=== PATIENT | female | born 1970 | race Caucasian/White ===

== ENCOUNTER 2016-11-18 18:06 | Emergency (ER) | payer MEDICARE, MEDICAID ==
[2016-11-18 18:30] VITALS: BP 117/77
[2016-11-18] MEDS ORDERED: HYDROcodone/ACETAMIN 5-325 MG* 1 TAB PO ONE ×2 (18:50→20:00)
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
--- NOTE | 2016-11-18 19:17 | RAD ---
HISTORY: Wrist pain, fall COMPARISONS: None VIEWS: 3, Frontal, lateral, and oblique views of the left wrist FINDINGS: BONE DENSITY: Normal. BONES: There is a comminuted angulated fracture of the distal radial metaphysis with articular extension. There is approximately 30 degrees of volar angulation. JOINTS: There is no arthropathy. ALIGNMENT: There is no dislocation. SOFT TISSUES: Unremarkable. OTHER FINDINGS: None. IMPRESSION: COMMINUTED ANGULATED FRACTURE OF THE DISTAL RADIAL METAPHYSIS WITH ARTICULAR EXTENSION
== END 2016-11-18 20:28 | disposition home or self-care (01) ==
LOC: UCCORT 18:06
DX: S52.502A Unspecified fracture of the lower end of left radius, initial encounter for closed fracture (principal); S00.81XA Abrasion of other part of head, initial encounter; S60.312A Abrasion of left thumb, initial encounter; V86.99XA Unspecified occupant of other special all-terrain or other off-road motor vehicle injured in nontraffic accident, initial encounter; Y93.9 Activity, unspecified; Y92.9 Unspecified place or not applicable; Z88.5 Allergy status to narcotic agent; F17.210 Nicotine dependence, cigarettes, uncomplicated
CPT/HCPCS: 99213; G0463

== ENCOUNTER 2016-12-01 10:21 | Day surgery (SDC) | payer MEDICARE, MEDICAID ==
[~2016-12-01 10:21] MED LIST: Buffered Lidocaine 0.9% SYRIN* 5 ML/SYR SYRINGE INTRADERM ONE; Famotidine IV* 10 MG/ML 2 ML (20 mg) IV ONE
[2016-12-01] MEDS ORDERED: Dexamethasone IV* 4 MG/ML 1 ML (4 MG) ONE (10:50)
[2016-12-01] MEDS ORDERED: Famotidine IV* 10 MG/ML 2 ML (20 mg) ONE (10:50)
[2016-12-01] MEDS ORDERED: ceFAZolin 2 GM PREMIX (*) 50 ML IVPB ONE (11:18)
[2016-12-01] MEDS ORDERED: Lidocaine 2% PF * 5 ML VIAL ONE (11:34)
[2016-12-01] MEDS ORDERED: Propofol* 10 MG/ML 20 ML BTL IV PUSH ONE (11:34)
[2016-12-01] MEDS ORDERED: fentaNYL* 50 MCG/ML 5 ML VIAL (250 MCG VIAL) ONE ×2 (11:49→12:51)
[2016-12-01] MEDS ORDERED: KETAMINE HCL* 50 MG/ML 10 ML VIAL ONE (11:49)
[2016-12-01] MEDS ORDERED: Midazolam* 1 MG/ML 2 ML VIAL (2 MG) ONE (11:49)
[2016-12-01] MEDS ORDERED: Bupivacaine 0.25% SDV* 30 ML ONE (11:49)
[2016-12-01] MEDS ORDERED: Ketorolac INJ* 30 MG/ML 1 ML VIAL ONE (12:04)
[2016-12-01] MEDS ORDERED: oxyCODONE TAB* 5 MG TAB PO PRN (12:24)
[2016-12-01] MEDS ORDERED: Morphine INJ* 2 MG/ML 1 ML CARPUJECT IV PRN (12:24)
[2016-12-01] MEDS ORDERED: PROCHLORPERAZINE INJ 5 MG/ML 2 ML VIAL IV PRN (12:24)
[2016-12-01] MEDS ORDERED: Ondansetron INJ* 2 MG/ML VIAL ONE (13:15)
[2016-12-01] MEDS ORDERED: fentaNYL* 50 MCG/ML 2 ML VIAL (100 MCG VIAL) ONE ×2 (14:14→14:36)
[2016-12-01] MEDS: fentaNYL* 50 MCG/ML 2 ML VIAL (100 MCG VIAL) IV PRN ×3 (14:15→14:37)
[2016-12-01 15:27] VITALS: BP 123/78
--- NOTE | 2016-12-02 03:52 | OP ---
DATE OF OPERATION: 12/01/16 - [facility] DATE OF : 66 SURGEON: Ankur Mario MD. REWORKER: DONOVAN Villeda. An funeral home assistant was needed for the entirety of the procedure to aid in position of the arm and retraction. ANESTHESIOLOGIST: Dr. Cookie Ashby. ANESTHESIA: General. PRE-OP DIAGNOSIS: Left multi fragmentary, greater than 3 fragments, intraarticular distal radius fracture. POST-OP DIAGNOSIS: Left multi fragmentary, greater than 3 fragments, intraarticular distal radius fracture. OPERATIVE PROCEDURE: Open reduction and internal fixation, left intraarticular , greater than 3 fragments, distal radius fracture. INDICATIONS: Aria has a severely comminuted left distal radius fracture. It is very displaced being about a cm short, very radially deviated and quite a bit of dorsal tilt. I had talked to her about her treatment options to include external fixation versus dorsal spanning plating versus open reduction and internal fixation. We talked about risks and benefits of each option. She wants to proceed. ESTIMATED BLOOD LOSS: 10 mL. COMPLICATIONS: None. FINDINGS: As expected. IMPLANT: Synthes variable angle distal radius plate and 2.4 mm screws. DESCRIPTION OF PROCEDURE: Aria was seen in the preoperative holding area. The correct side, site, and procedure were identified. We came back to the operating room where anesthesia was induced and the arm was prepped and draped in the usual fashion. A time-out was performed. The arm was exsanguinated with the Esmarch and the tourniquet inflated to 250 mmHg. I began by making an incision longitudinally over the course of the distal FCR tendon. This was brought back obliquely across the wrist flexion crease towards the first metacarpal. Dissection was carried down to the FCR tendon sheath; this was incised with the knife. FCR tendon was retracted ulnarly and developed soft tissue interval down to the pronator quadratus. The FPL tendon was retracted ulnarly. I then released the pronator quadratus off the radial margin of the distal radius and then transversely distally to expose the fracture site. The pronator released subperiosteally. I was able to then release the brachioradialis of the radial aspect of the radius. Once the brachioradialis was released, I went ahead and took a Lucero tip and suctioned out the fracture hematoma. There were 4 to 5 fragments extending down the fracture line in the coronal plane, extending up into joint line. I went ahead and open booked one of the central larger pieces on a distal hinge. Through that window, I was able to identify a very large, rotated, articular piece that I had seen on the preoperative CT scan. I used my [place] elevator and the dental pick to derotate that piece and put it back to where it belonged together with the pieces of scaphoid facet. Once I had that large piece derotated and back in alignment, I went ahead and irrigated out the fracture site. I placed the arm in 15 pounds of traction temporarily and then in 10 pounds of traction to facilitate regaining the length as she was almost a cm short. Once I had the length regained and the fracture line keyed in, I went ahead and selected a variable angle distal radius plate off the Synthes set. This was pinned in place distally and proximally and then a C-arm was used to confirm the position of the plate. Once I had gained reduction, plate position looking good on the C-arm, I went ahead and used the combination of the variable angle and standard angle locking guide to place 5 screws in the distal row in the plate. We selected the wider plate as there were so many pieces, the fracture line was in the coronal plane, I wanted to make sure it spans along. Once I had the distal row of screws in place, and all of the pins removed, I went ahead and used the lobster claw to clamp the plate down to the bone proximally. I checked the imaging and then I placed 2 cortical screws in 2 proximal most holes and then a locking screw in the distal hole of the proximal screws. Once the plate was attached proximally , we went ahead and got final fluoroscopic imaging. Everything was good, so I irrigated out the wound again and the pronator was closed with 3-0 Vicryl suture. The skin was closed with 3-0 Vicryl followed by 3-0 Monocryl subcuticular suture and then Steri-Strips. Everything was infiltrated with 0.25 % plain Marcaine. The wound was dressed with 4x4's, sterile Webril, and a volar wrist splint. The tourniquet was deflated, the hand pinked up immediately. She was then taken to the recovery room in stable condition. [id number]/[facility] #: [id number] KAILA
--- NOTE | 2016-12-03 14:56 | RAD ---
INDICATION: Left wrist ORIF COMPARISON: November 18, 2016 FINDINGS: 52 seconds of fluoroscopy were provided for the BX department. Fluoroscopic spot imaging of the stress were obtained for operative control and show ORIF of the distal radial fracture. Post procedure radiographs are pending.. CPT II Codes: 6045F (fluoro time doc)
== END 2016-12-01 15:21 | disposition home or self-care (01) ==
LOC: OREAST 10:21
PROVIDERS: ATTEND Orthopaedic Surgery Hand Surgery
DX: S52.572A Other intraarticular fracture of lower end of left radius, initial encounter for closed fracture (principal); W18.30XA Fall on same level, unspecified, initial encounter; Y92.9 Unspecified place or not applicable; F17.200 Nicotine dependence, unspecified, uncomplicated
CPT/HCPCS: 76000; C1713; C1776; J0690; J1100; J1885; J2250; J2405; J2704; J3010

== ENCOUNTER 2017-10-29 06:26 | Day surgery (SDC) | payer MEDICARE, MEDICAID ==
[~2017-10-29 06:26] MED LIST changes: +Dexamethasone IV* 4 MG/ML 1 ML (4 MG) IV SLOW PU ONE; +Dexamethasone IV* 4 MG/ML 1 ML (4 MG) ONE; +Famotidine IV* 10 MG/ML 2 ML (20 mg) ONE; +Levalbuterol 0.63MG/3ML NEB* UNIT OF USE INH ONE
[2017-10-29] MEDS ORDERED: ceFAZolin 2 GM PREMIX (*) 2 GM/50 ML BAG IVPB ONE (06:41)
[2017-10-29] MEDS ORDERED: Bupivacaine 0.5%* 50 ML VIAL ONE (07:35)
[2017-10-29] MEDS ORDERED: fentaNYL* 50 MCG/ML 5 ML VIAL (250 MCG VIAL) ONE (07:43)
[2017-10-29] MEDS ORDERED: Midazolam* 1 MG/ML 2 ML VIAL (2 MG) ONE (07:43)
[2017-10-29] MEDS ORDERED: Atracurium* 10 MG/ML 10 ML VIAL ONE (07:43)
[2017-10-29] MEDS ORDERED: Ketorolac INJ* 30 MG/ML 1 ML VIAL ONE (07:43)
[2017-10-29] MEDS ORDERED: Propofol* 10 MG/ML 20 ML BTL IV PUSH ONE (07:43)
[2017-10-29] MEDS ORDERED: Lidocaine 2% PF * 5 ML VIAL ONE (07:43)
[2017-10-29] MEDS ORDERED: oxyCODONE/Acetamin 5/325 MG* TAB PO PRN (08:18)
[2017-10-29] MEDS ORDERED: Naloxone* 0.4 MG/ML 1 ML VIAL IV PRN (08:18)
[2017-10-29] MEDS ORDERED: DiMENhydriNATE IV* 50 MG/ML VIAL IV PUSH PRN (08:18)
[2017-10-29] MEDS ORDERED: Ondansetron INJ* 2 MG/ML VIAL IV PRN (08:18)
[2017-10-29] MEDS ORDERED: fentaNYL* 50 MCG/ML 2 ML VIAL (100 MCG VIAL) IV PRN (08:18)
[2017-10-29] MEDS ORDERED: fentaNYL* 50 MCG/ML 2 ML VIAL (100 MCG VIAL) ONE (08:22)
[2017-10-29] MEDS ORDERED: EPHEDrine (Pressors)* 50 MG/ML VIAL ONE (08:55)
[2017-10-29 09:39] VITALS: BP 108/72
[2017-10-29] MEDS ORDERED: Ibuprofen TAB* 600 MG ONE (09:39)
--- NOTE | 2017-10-29 15:14 | OP ---
DATE OF OPERATION: 10/29/17 - [facility] DATE OF : 66 SURGEON: Ankur Mario MD ELECTRICAL ASSISTANT: DONOVAN Villeda ANESTHESIOLOGIST: Dr. Sami Sawyer ANESTHESIA: General. PRE-OP DIAGNOSES: 1. Painful hardware left wrist distal radius, status post left distal radius fracture open reduction internal fixation. 2. Left de Quervain's release. POST-OP DIAGNOSES: 1. Painful hardware left wrist distal radius, status post left distal radius fracture open reduction internal fixation. 2. Left de Quervain's release. OPERATIVE PROCEDURE: 1. Removal of left distal radius plate and screws. 2. Left de Quervain's release. INDICATIONS: Mirza fracture is healed. She is having pain in the wrist on presentation to the OR today. She is having a lot of pain in the radial wrist. She had a lot of tenderness along the first dorsal compartment tendon sheath and positive Paolo's test. We had talked about risks and benefits of surgery. She had wanted to proceed. ESTIMATED BLOOD LOSS: 2 mL. COMPLICATIONS: None. FINDINGS: As expected. DESCRIPTION OF PROCEDURE: Aria was seen in the preoperative holding area. The correct side, site, and procedure were identified. We came back to the operating room. The arm was prepped and draped in the usual fashion. The time- out was performed. The arm was exsanguinated with the Esmarch and the tourniquet was inflated to 250 mmHg. I reopened her prior distal radius ORIF incision. Dissection was carried down radial to the FCR tendon sheath the pronator quadratus was released. The plate and screws were removed in standard fashion. The soft tissue and bony edges were all excised with the rongeur. Pronator was then repaired with 3-0 Vicryl suture. The skin was then closed with 4-0 Monocryl suture. I then made a 1 to 2 cm transverse incision over the first dorsal compartment tendon sheath. Full thickness flaps were raised. The sensory nerve was retracted with Ragnell retractor. The tendon sheath was released of its dorsal margin that was in accessory compartment, the septum between the accessory compartment was completely excised. Once the tendon release was complete and a small tenosynovectomy was performed. We irrigated out the wound and the skin was closed with 4-0 Monocryl suture. Wounds were dressed with soft dressing. The tourniquet was deflated and she was taken to the recovery room in stable condition. [id number]/[facility] #: [id number] KAILA
== END 2017-10-29 10:04 | disposition home or self-care (01) ==
LOC: OREAST 06:26
PROVIDERS: ATTEND Orthopaedic Surgery Hand Surgery
DX: T84.84XA Pain due to internal orthopedic prosthetic devices, implants and grafts, initial encounter (principal); Y83.1 Surgical operation with implant of artificial internal device as the cause of abnormal reaction of the patient, or of later complication, without mention of misadventure at the time of the procedure; M65.4 Radial styloid tenosynovitis [de Quervain]; Z72.0 Tobacco use
CPT/HCPCS: 88300; A9270-GY; J0690; J1100; J1885; J2250; J2704; J3010

== ENCOUNTER 2018-06-16 10:09 | Emergency (ER) | payer MEDICARE, MEDICAID ==
[2018-06-16 10:54] VITALS: BP 124/75
--- NOTE | 2018-06-16 11:15 | UC ---
Skin Complaint HPI - HPI Summary HPI Summary: 48-year-old female comes in with a chief complaint of a rash. Started about 2 weeks ago. It's itchy. It's small red bumps scattered everywhere the body but primarily at the waistline. The other 2 members of the family also have the same rash. No new detergents no new soaps. Has tried [id number] creams to include steroid creams without any relief. No fevers or chills feels well otherwise. No new medications. - History of Current Complaint Chief Complaint: UCRash Time Seen by Provider: 06/16/18 10:41 Stated Complaint: SKIN COMPLAINT Hx Last Menstrual Period: tubal ligation Pain Intensity: 0 - Allergy/Home Medications Allergies/Adverse Reactions: Allergies Allergy/AdvReac Type Severity Reaction Status Date / Time topiramate [From Topamax] Allergy Hives Verified 10/29/17 06:48 tramadol Allergy Hives Verified 10/29/17 06:48 PMH/Surg Hx/FS Hx/Imm Hx Previously Healthy: Yes - Surgical History Surgical History: Yes Surgery Procedure, Year, and Place: Csection 1987. NECK- DISCECTOMY, FUSION- 2011-[place]. 1996-TUBAL LIGATION. left wrist, 2017, [facility]. left wrist, 2018, [facility] - Family History Known Family History: Negative: Cardiac Disease, Hypertension - Social History Alcohol Use: Occasionally Alcohol Amount: 2 Substance Use Type: None Smoking Status (MU): Heavy Every Day Tobacco Smoker Amount Used/How Often: 1 ppd X 16+ YEARS Length of Time of Smoking/Using Tobacco: ~ 30 years Have You Smoked in the Last Year: Yes - Immunization History Most Recent Influenza Vaccination: no Review of Systems All Other Systems Reviewed And Are Negative: Yes Constitutional: Positive: Negative Skin: Positive: Other - see hpi Eyes: Positive: Negative ENT: Positive: Negative Respiratory: Positive: Negative Cardiovascular: Positive: Negative Gastrointestinal: Positive: Negative Motor: Positive: Negative Neurovascular: Positive: Negative Musculoskeletal: Positive: Negative Neurological: Positive: Negative Psychological: Positive: Negative Is Patient Immunocompromised?: No Physical Exam Triage Information Reviewed: Yes Appearance: Well-Appearing, No Pain Distress, Well-Nourished Vital Signs: Initial Vital Signs Temp 98 F 06/16/18 10:51 Pulse 81 06/16/18 10:51 Resp 16 06/16/18 10:51 BP 124/75 06/16/18 10:51 Pulse Ox 98 06/16/18 10:51 Vital Signs Reviewed: Yes Eye Exam: Normal Eyes: Positive: Conjunctiva Clear Neck: Positive: Supple Respiratory: Positive: No respiratory distress Musculoskeletal Exam: Normal Musculoskeletal: Positive: Strength Intact, ROM Intact Neurological Exam: Normal Neurological: Positive: Alert, Muscle Tone Normal Psychological Exam: Normal Psychological: Positive: Normal Response To Family, Age Appropriate Behavior Skin: Positive: Other - Erythematous diffuse rash on trunk and arms. Slightly raised 1-2mm punctate lesions. Course/Dx - Course Course Of Treatment: Rash most consistent with scabies. F/U dermatology if not improved. - Diagnoses Provider Diagnosis: Rash Discharge - Sign-Out/Discharge Documenting (check all that apply): Patient Departure All imaging exams completed and their final reports reviewed: No Studies - Discharge Plan Condition: Stable Disposition: HOME Prescriptions: Permethrin [Elimite] 30 gm TP ONCE #60 gm Patient Education Materials: Scabies (ED), Acute Rash (ED) Referrals: Daisy Edwards MD [Primary Care Provider] - Ganga Manuel MD [Medical Doctor] - Additional Instructions: FOLLOW UP WITH YOUR DOCTOR IF NOT COMPLETELY IMPROVED. GET REEVALUATED SOONER IF YOUR CONDITION WORSENS OR ANY QUESTIONS OR CONCERNS. - Billing Disposition and Condition Condition: STABLE Disposition: Home
== END 2018-06-16 11:21 | disposition home or self-care (01) ==
LOC: UCCORT 10:09
DX: R21 Rash and other nonspecific skin eruption (principal)
CPT/HCPCS: 99212; G0463